=== PATIENT | female | born 1950 | race Two or more races ===

== ENCOUNTER 2020-11-06 10:12 | Outpatient (CLI) | payer MEDICARE | END 2020-11-06 23:59 | disposition home or self-care (01) | LOC: CFH 10:12 | PROVIDERS: ATTEND Family Medicine | DX: M81.0 Age-related osteoporosis without current pathological fracture (principal); M25.562 Pain in left knee; N95.9 Unspecified menopausal and perimenopausal disorder | CPT/HCPCS: 77080 ==